=== PATIENT | female | born 1970 | race Caucasian/White ===

== ENCOUNTER → 2016-07-16 | Outpatient (CLI) | payer OTHER ==
[~2016-07-16] MED LIST: ASTN; AZEL0.055 OP; AZEL30SP NAE; LANS30CA12 PO; PRLSR20 PO; RANI300T2 PO; SYMIN160 INH; [UNRECOGNIZED DRUG - REMARK]
--- NOTE | 2016-07-16 16:15 | MAMMOGRAPHY REPORT ---
BILATERAL DIGITAL SCREENING MAMMOGRAM TOMOSYNTHESIS WITH CAD: 07/16/2016 CLINICAL HISTORY: Routine screening. Patient has no complaints. TECHNIQUE: Breast tomosynthesis in addition to standard 2D mammography was performed. Current study was also evaluated with a Computer Aided Detection (CAD) system. COMPARISON: Comparison is made to exams dated: 07/10/2015 mammogram, 07/06/2014 mammogram, 03/27/2013 m ammogram, 02/17/2012 mammogram, 08/25/2010 mammogram, and 08/20/2009 mammogram - [facility] ter. BREAST COMPOSITION: The tissue of both breasts is heterogeneously dense, which may obscure small mas ses. FINDINGS: The parenchymal pattern is unchanged. No developing mass, architectural distortion or clus ter of suspicious microcalcifications is seen in either breast. IMPRESSION: ACR BI-RADS CATEGORY 2: BENIGN There is no mammographic evidence of malignancy. A 1 year screening mammogram is recommended. The pa tient will receive written notification of the results. Approximately 10% of breast cancers are not detected with mammography. A negative mammographic report should not delay biopsy if a clinically suggestive mass is present. Rosa Isela Narayan M.D. ay/:07/16/2016 16:04:07 Crtt: Sujatha BERUMEN(Morgan)(Gabriela)(BD), [facility] letter sent: Normal 1/2 BI-RADS Code: ACR BI-RADS Category 2: Benign
== END | disposition home or self-care (01) ==
LOC: C.MAMM 13:50
PROVIDERS: ATTEND Obstetrics & Gynecology
DX: Z12.31 Encounter for screening mammogram for malignant neoplasm of breast (principal)

== ENCOUNTER → 2016-07-30 | Outpatient (CLI) | payer OTHER | END | disposition home or self-care (01) | LOC: C.PAPS 13:12 | PROVIDERS: ATTEND Internal Medicine | DX: Z12.4 Encounter for screening for malignant neoplasm of cervix (principal) ==

== ENCOUNTER → 2016-12-02 | Outpatient (CLI) | payer OTHER ==
[~2016-12-02] MED LIST changes: -ASTN; -AZEL0.055 OP; -AZEL30SP NAE; -LANS30CA12 PO; -PRLSR20 PO; -RANI300T2 PO; -SYMIN160 INH
--- NOTE | 2016-12-02 15:31 | EXERCISE STRESS ECHO ---
*NOTICE TO RECEIVING CONSTITUTION PARTY AGENCY This information is strictly Confidential and protected under [place] law. [place] law prohibits you from making any further disclosure of this information unless further disclosure is expressly permitted by the written consent of the person to whom it pertains or is authorized by law. A general authorization for the release of medical or other information is not sufficient for this purpose. Hospital accepts no responsibility if the information is made available to any other person, INCLUDING THE PATIENT. Interpretation Summary * Name: MACEY VARGAS Study Date: 12/02/2016 09:39 AM BP: 108/69 mmHg * Patient Location: [facility] HR: 71 * : 1970 (M/d/yyyy) Gender: Female Height: 61 in * Age: 46 yrs Ethnicity: [place] Weight: 151 lb * Ordering Physician: Morgan Machuca * Referring Physician: Morgan Machuca. * Performed By: Sujatha Park [facility] * * Reason For Study: DYSPNEA * BSA: 1.7 m2 * Normal hemodynamic response to exercise. * No exercise induced arrhythmias. * The ECG response to exercise is suggestive of ischemia. The echo response to exercise was normal, thus making the ECG response consistent with a false positive finding. * Low normal resting LV systolic function. * Left ventricular diastolic dysfunction. * Trace pulmonic and tricuspid regurgitation. * Mildly elevated estimated right ventricular systolic pressure. * This was a normal stress echocardiogram. * The left ventricular ejection fraction increases normally with stress. The left ventricular end-systolic cavity size reduces post-stress (normal response). The left ventricular wall motion with stress is normal. * Exercise capacity is average. Procedure Details * ECHOEX, CPT #[id number] * ECHO COLOR FLOW, CPT #[id number] * ECHO DOPPLER, CPT #[id number] Left Ventricle * The left ventricle is normal in size. * There is normal left ventricular wall thickness. * Left ventricular systolic function is low normal. * Ejection Fraction = 50-55%. * A full diastolic examination was done with clinical findings of Class I diastolic dysfunction. * The left ventricular wall motion is normal. * Resting wall motion: Normal. Stress wall motion: Appropriate increase in Left ventricular systolic function and decrease in cavity size. No stress induced segmental wall motion abnormalities. Right Ventricle * The right ventricle is normal size. Atria * The left atrial size is normal. * Right atrial size is normal. * No ASD detected; PFO is not assessed. Mitral Valve * The mitral valve is normal. * There is no mitral valve stenosis. * There is no mitral regurgitation noted. Tricuspid Valve * The tricuspid valve is normal. * There is no tricuspid stenosis. * There is trace tricuspid regurgitation. * Right ventricular systolic pressure is elevated at 30-40mmHg. Aortic Valve * The aortic valve is trileaflet. * The aortic valve opens well. * Aortic stenosis is absent. * No aortic regurgitation is present. Pulmonic Valve * The pulmonic valve is not well seen, but is grossly normal. * Pulmonic stenosis is absent. * Trace pulmonic valvular regurgitation. Great Vessels * The aortic root is normal size. * Normal diameter of the inferior vena cava. Pericardium * There is no pericardial effusion. Stress Parameters * The baseline ECG displays normal sinus rhythm. * The baseline ECG displays normal ST segments. * 0.5 - 1.6 mm horizontal to slowly upsloping ST depression in leads II, III, aVF, V4-V6 * The stress portion of this study was personally supervised by the undersigned interpreting physician. * Rest heart rate was '75' BPM. * Rest blood pressure was '108/69' * Maximum heart rate achieved was 166 bpm. * Maximum heart rate was 96 % of maximum age-predicted heart rate. * Maximum blood pressure was '153/76' * Total exercise time was '09:00' * Maximum exercise MET level achieved was '10.10' METS * Maximum treadmill speed was '3.40' miles per hour. * Maximum treadmill elevation was '14.00'% grade. * Exercise was stopped due to fatigue. MMode 2D Measurements and Calculations IVSd 1.0 cm IVSs 1.0 cm LVIDd 4.1 cm LVIDs 2.9 cm LVPWd 1.0 cm LVPWs 1.0 cm IVS/LVPW 1.0 FS 28.8 % EDV(Teich) 76.0 ml ESV(Teich) 33.6 ml EF(Teich) 55.8 % EDV(cubed) 71.0 ml ESV(cubed) 25.7 ml EF(cubed) 63.8 % % IVS thick 2.4 % % LVPW thick -0.92 % LV mass(C)d 137.9 grams LV mass(C)dI 82.2 grams/m\S\2 LV mass(C)s 83.5 grams LV mass(C)sI 49.8 grams/m\S\2 SV(Teich) 42.4 ml SI(Teich) 25.3 ml/m\S\2 SV(cubed) 45.3 ml SI(cubed) 27.0 ml/m\S\2 Ao root diam 2.6 cm Ao root area 5.2 cm\S\2 LA dimension 2.7 cm LA/Ao 1.0 LVOT diam 2.0 cm LVOT area 3.2 cm\S\2 Doppler Measurements and Calculations MV E max cathleen 57.2 cm/sec MV A max cathleen 64.7 cm/sec MV E/A 0.88 MV P1/2t max cathleen 75.1 cm/sec MV P1/2t 73.6 msec MVA(P1/2t) 3.0 cm\S\2 MV dec slope 298.9 cm/sec\S\2 MV dec time 0.24 sec Ao V2 max 102.2 cm/sec Ao max PG 4.2 mmHg Ao max PG (full) 1.6 mmHg NISSA(V,A) 2.5 cm\S\2 NISSA(V,D) 2.5 cm\S\2 LV V1 max PG 2.6 mmHg LV V1 max 80.9 cm/sec PA V2 max 73.3 cm/sec PA max PG 2.2 mmHg TR max cathleen 266.6 cm/sec
== END | disposition home or self-care (01) ==
LOC: C.CPL 09:15
PROVIDERS: ATTEND Internal Medicine Critical Care Medicine
DX: J44.9 Chronic obstructive pulmonary disease, unspecified (principal); R59.1 Generalized enlarged lymph nodes; R06.09 Other forms of dyspnea; R91.1 Solitary pulmonary nodule

== ENCOUNTER → 2016-12-07 | Outpatient (CLI) | payer OTHER ==
[~2016-12-07] MED LIST changes: +AZEL0.055 OP; +PRLSR20 PO; +RANI300T2 PO; +SYMIN160 INH
[2016-12-07 12:15] LABS: BASO % 0.3 %; BASO ABS # 0.02 K/uL (0-0.2); COMPLETE YES; EOS % 2.1 %; HEMATOCRIT 41.7 % (37-47); IG% 0.3 %; LYMPH % 17.5 %; LYMPH ABS # 1.07 K/uL (1.2-3.4); MEAN CELL VOLUME 93.5 fL (80-100); MEAN CORPUSCULAR HEMOGLOBIN 31.2 pg (25-34); MEAN CORPUSCULAR HGB CONC 33.3 g/dl (32-36); MEAN PLATELET VOLUME 9.9 fL (7.4-10.4); MONO % 6.9 %; NEUT % 72.9 %; PLATELET COUNT 295 K/uL (130-400); RED BLOOD COUNT 4.46 M/uL (4.2-5.4); WHITE BLOOD COUNT 6.11 K/uL (4.8-10.8)
[2016-12-07 12:16] LABS: PARTIAL THROMBOPLASTIN RATIO 1.1; PROTHROMBIN TIME (PATIENT) 10.3 SECONDS (9.0-12.0)
[2016-12-07 12:30] LABS: ALT/SGPT 17 U/L (12-78); AST/SGOT 13 U/L (15-37); BLOOD UREA NITROGEN 11 mg/dl (7-18); BUN/CREATININE RATIO 14.1 (10-20); CALCIUM 8.8 mg/dl (8.5-10.1); CARBON DIOXIDE 27 mmol/L (21-32); CHLORIDE 105 mmol/L (98-107); CREATININE 0.77 mg/dl (0.60-1.20); GLUCOSE 73 mg/dl (70-99); POTASSIUM 3.6 mmol/L (3.5-5.1); SODIUM 140 mmol/L (136-145)
[2016-12-07 12:34] LABS: ALKALINE PHOSPHATASE 117 U/L (45-117)
== END | disposition home or self-care (01) ==
LOC: C.LAB1850 09:55
PROVIDERS: ATTEND Internal Medicine Critical Care Medicine
DX: J44.9 Chronic obstructive pulmonary disease, unspecified (principal)

== ENCOUNTER 2016-12-09 07:13 | Day surgery (SDC) | payer OTHER ==
[~2016-12-09] VITALS: Ht 161.9 cm; Wt 68.0 kg
[2016-12-09] VITALS (14 sets, daily range): BP systolic 100–135; BP diastolic 56–79; PULSE 75–99; TEMP 36.7–37.2; O2SAT 95–100; Ht 161.9 cm; Wt 68.0 kg
[~2016-12-09 07:13] MED LIST changes: -AZEL0.055 OP; -PRLSR20 PO; -RANI300T2 PO; -SYMIN160 INH
[2016-12-09] MEDS ORDERED: MIDAZOLAM HCL 5 MG/ML 1 ML VIAL IV ONE ×2 (07:14→10:15)
[2016-12-09] MEDS ORDERED: FENTANYL CITRATE 100 MCG 2 ML CARP IV ONE (07:14)
[2016-12-09] MEDS ORDERED: LIDOCAINE HCL 2% LOCAL 50ML VIAL INFIL ONE (07:14)
--- NOTE | 2016-12-09 07:25 | History and Physical ---
History & Physical Date of Service Dec 09, 2016. History & Physical CC: Bronchoscopy to evaluate chronic cough HPI: Patient is a 46 yo female with history of MENDEZ and chronic cough. The patient has had a dry cough that has been persistent, but she denies fever, chills, hemoptysis, weight loss/ weight gain, sick contacts, travel, or chemical exposures. Her cough is typically associated with allergies and chronic rhinitis, and she was previously treated with multiple different medications along with immunotherapy without improvement of her symptoms. The patient has had an extensive workup for cough including: Laryngoscopy- WNL 11/03/16 Allergy/Immunology visit- sensitivity to dust mites, grass, ragweed, pollens, mold PFT 07/01/16 PRE POST %Change FEV1/FVC: 64 64 FEV1: 1.45/52% 1.50 3% FVC: 2.25/65% 2.35 4% FEF 25-75% 39% SVC: 2.02/58% RV: 2.14/126% T.15/84% RV/T% DLCO: 74% Interpretation: Emphysema PFT 03/31/13 PRE FEV1/FVC: 100 FEV1: 1.39/49% FVC: 1.395/39% Interpretation: Poor quality testing CT thorax 02/14/2016 personally able to review 4 mm nodule in the left apex 3 mm calculus in the right posterior costophrenic angle Multilevel degeneration/degenerative changes of the thoracic spine Calcified granuloma at the apex of the diaphragm EGD with esophageal biopsy 01/24/2015 Squamous columnar mucosa with findings consistent with reflux esophagitis CT sinuses without contrast 01/19/2014 No obstructive para-nasal sinus disease noted Allergy skin testing 03/31/2013 Positive reaction: Dust mites, grass, ragweed pollen, mold Alternaria, CT CXR 07/02/2016 No acute cardiopulmonary findings Active problems: Asthma, sinusitis, allergic rhinitis, Bronchospasm, Cough, GERD, Hypercholesterolemia, Lymphadenopathy, migraine headaches, osteopenia, peritoneal adhesions, pulmonary nodule PMHx: Uterine leiomyoma, mild cervical dysplasia Surgical Hx: Cervix cryosurgery, foot surgery, hysteroscopy with endometrial ablation, laparoscopy with fulguration of oviducts, supracervical hysterectomy laparoscopic uterus Family Hx: Unremarkable Social Hx: Social drinker, exercises regularly, single, never smoker Current Meds: Loratadine 10 mg once daily, Symbicort 80-4.5 mcg/act Inh 2 puffs BID, Proventil HFA 108 2 puffs 4 times daily PRN, Lansoprazole 30 mg daily, Astelin 137 mcg/spray Allergies: NKDA Physical Exam: Constitutional General appearance: No acute distress, well appearing and well nourished. Eyes Conjunctiva and lids: No swelling, erythema or discharge. Pupils and irises: Equal, round and reactive to light. Ears, Nose, Mouth, and Throat External inspection of ears and nose: Normal. Otoscopic examination: Abnormal. Oropharynx: Normal with no erythema, edema, exudate or lesions. Pulmonary Respiratory effort: No increased work of breathing or signs of respiratory distress. Auscultation of lungs: Clear to auscultation. Cardiovascular Auscultation of heart: Normal rate and rhythm, normal S1 and S2, without murmurs. Examination of extremities for edema and/or varicosities: Normal. Abdomen Abdomen: Non-tender, no masses. Lymphatic Digits and nails: Normal without clubbing or cyanosis. Inspection/palpation of joints, bones, and muscles: Normal. Skin Skin and subcutaneous tissue: Normal without rashes or lesions. Neurologic Cranial nerves: Cranial nerves 2-12 intact. Reflexes: 2+ and symmetric. Sensation: No sensory loss. Psychiatric Orientation to person, place, and time: Normal. Mood and affect: Normal. Assessment and Plan: Persistent cough. Plan for bronchoscopic evaluation today.
[2016-12-09] MEDS ORDERED: SYMIN160 INH (07:56)
[2016-12-09] MEDS ORDERED: PRLSR20 PO (07:56)
[2016-12-09] MEDS ORDERED: AZEL0.055 OP (07:56)
[2016-12-09] MEDS ORDERED: RANI300T2 PO (07:56)
--- NOTE | 2016-12-09 09:18 | Procedure Note ---
Pre-Mod Sedation Assessment General Date of Moderate Sedation: Dec 09, 2016. Vital Signs: Vital Signs Past 12 Hours Date Time Temp Pulse Resp B/P (MAP) Pulse Ox O2 Delivery O2 Flow Rate FiO2 12/09/16 08:52 37.2 80 18 100/56 97 Room Air 12/09/16 08:02 37.2 80 18 100/56 (71) 97 Room Air Review Cardiovascular: regular rate, rhythm, no edema, no gallop, no JVD, no murmur Abdomen: normal bowel sounds, non tender, soft, no organomegaly, no pulsatile mass Lungs: chest non-tender, lungs clear, normal breath sounds, no respiratory distress Airway Class: I Pre-Sedation Airway Assessment Oral Cavity: WNL Able to Visualize Vocal Cords: Yes Short Thick Neck: Yes Hx of Sleep Apnea: No Smoking Status: Never Smoker Mallampati Classification: Class II ASA Classification: Class I Procedure Planning Contraindications-for Mod Sed: None Yes Notes The planned sedation has been discussed with the patient and consent obtained. I have identified the patient, determined the appropriateness of sedation and have assessed the patient immediately prior to the procedure. All medicine(s) and interventions are by my order.
--- NOTE | 2016-12-09 09:18 | History & Physical Bridge Note ---
H&P Re-Evaluation Bridge Note: I have examined the patient, reviewed the History & Physical and in the interval since the performance of the History & Physical I have noted the following changes of clinical significance: No changes noted
[2016-12-09] MEDS ORDERED: NURSING VERBAL MED ORDER ONE (10:00)
--- NOTE | 2016-12-09 10:02 | Procedure Note ---
Post-Moderate Sedation Plan General Date of Moderate Sedation Dec 09, 2016. Vital Signs: Vital Signs Past 12 Hours Date Time Temp Pulse Resp B/P (MAP) Pulse Ox O2 Delivery O2 Flow Rate FiO2 12/09/16 08:52 37.2 80 18 100/56 97 Room Air 12/09/16 08:02 37.2 80 18 100/56 (71) 97 Room Air Review - Discharge Plan Post Moderate Sedation Plan: On clinical assessment, the patient appears to have tolerated the conscious sedation without complications. Patient is recovering as anticipated. Patient will continue to be monitored by nursing and may be discharged when conscious sedation discharge criteria are met.
--- NOTE | 2016-12-09 10:03 | Bronchoscopy Procedure Note ---
Bronchoscopy Procedure Note Procedure: Bronchoscopy, conscious sedation, bronchial lavage lingula Consent: Obtained through the patient placed into the chart Pre-procedural diagnosis: Chronic cough Post-procedural diagnosis: Chronic cough Start time: 937 End time: 956 Total time: minutes Analgesia: 2% liquid lidocaine: Via nebulizer 4% gel lidocaine: Via right naris 2% liquid lidocaine: Via bronchoscopy Sedation: Versed IV: 4mg Fentanyl IV: 75 g Procedure: The Olympus video bronchoscope was used for this procedure and passed down through the right naris Right naris/posterior naris/posterior oropharynx: Anatomically within normal limits Glottis: Anatomically within normal limits Vocal cords: Proper abduction and abduction, anatomically within normal limits Subglottis/trachea/Josefina: Anatomically within normal limits Right bronchial tree: Right mainstem bronchus: Anatomically within normal limits Right upper lobe: Anatomically within normal limits Bronchus intermedius: Anatomically within normal limits Right middle lobe: Anatomically within normal limits Right lower lobe: Anatomically within normal limits Findings: No significant findings noted Left bronchial tree: Left mainstem bronchus: Anatomically within normal limits Left upper lobe: Anatomically within normal limits Lingula: Anatomically within normal limits Left lower lobe: Anatomically within normal limits Findings: No significant findings noted Bronchial alveolar lavage: Lingula EBL: None Complications: None Follow-up: In the [facility]
--- NOTE | 2016-12-09 10:05 | Discharge Instructions ---
Discharge Instructions Date of Service Dec 09, 2016. Admission Reason for Admission: Asthma, Cough , Pulmonary Nodule Discharge Discharge Diagnosis / Problem: chronic cough Discharge Goals Goal(s): Diagnostic testing Activity Recommendations Activity Limitations: resume your previous activity . Instructions / Follow-Up Instructions / Follow-Up Follow-up in the [facility] pulmonary clinic Current Hospital Diet Patient's current hospital diet: Discharge Diet Recommended Diet: Regular Diet Procedures Procedures Performed: Bronchoscopy with conscious sedation and bronchial lavage of the lingula Pending Studies Studies pending at discharge: no Medical Emergencies . Who to Call and When: Medical Emergencies: If at any time you feel your situation is an emergency, please call 911 immediately. . Non-Emergent Contact Non-Emergency issues call your: Emergency Department Director . . "Provider Documentation" section prepared by Morgan Machuca. . VTE Core Measure Inpt VTE Proph given/why not?: Treatment not indicated
[2016-12-09] MEDS ORDERED: FENTANYL CITRATE INJ 50 MCG/1 ML 2 ML VIAL IV ONE (10:15)
== END 2016-12-09 12:20 | disposition home or self-care (01) ==
LOC: C.ACU 07:13
PROVIDERS: ATTEND Internal Medicine Critical Care Medicine
DX: R05 Cough (principal); J45.909 Unspecified asthma, uncomplicated; K21.9 Gastro-esophageal reflux disease without esophagitis; E78.00 Pure hypercholesterolemia, unspecified; M85.80 Other specified disorders of bone density and structure, unspecified site; Z79.899 Other long term (current) drug therapy

== ENCOUNTER → 2017-01-27 | Day surgery (SDC) | payer OTHER ==
[2017-01-21 11:32] VITALS: BMI 24.0
[~2017-01-27] VITALS: Ht 160 cm; Wt 63.2 kg
[~2017-01-27] MED LIST changes: +ASTN; +LANS30CA12 PO; +LIDOCAINE HCL 2% 2 ML VIAL (20MG/ML) ONE; +PROPOFOL IV EMULSION 10 MG/ML 20 ML VIAL IV ONE; +RANI300T2 PO; +SODIUM CHLORIDE 0.9% 500ML 500 ML IV ONE; +SYMIN160 INH; -[UNRECOGNIZED DRUG - REMARK]
[2017-01-27 12:41] VITALS: Ht 160 cm; Wt 63.2 kg
--- NOTE | 2017-01-27 13:08 | Endo History and Physical ---
History & Physical Date of Service: Jan 27, 2017. Chief Complaint: REFLUX COUGH Referring Physician: DR PINA History of Present Illness cough/GERD despite meds Past Surgical History Hx Cardiac Surgery: No Hx Internal Defibrillator: No Hx Pacemaker: No Hx Abdominal Surgery: Yes (LAPRASCOPIC HYSTERECTOMY WITH SALPINECTOMY) Hx of Implantable Prosthesis: No Hx Post-Op Nausea and Vomiting: Yes (PONV) Hx Cancer Surgery: No Hx Thoracic Surgery: No Hx Orthopedic: No Hx Urinary Tract Surgery: No Family History None Social History Smoking Status: Never Smoker Hx Substance Use: No Hx Alcohol Use: Yes (OCCASIONAL) Allergies Coded Allergies: No Known Allergies (Unverified , 01/27/17) Current Medications Reported Home Medications Medications Dose Route/Sig Max Daily Dose Days Date Category Astelin Nasal Reklaw (Azelastine Hcl) 200 Sprays/30 Ml Reklaw 1 Sprays NA BID 01/21/17 Reported Prevacid (Lansoprazole) 30 Mg Capcr 30 Mg PO BID 01/21/17 Reported Symbicort 160/4.5 Inhaler (Budesonide/Formoterol Fumarate) Aero 2 Puffs INH BID 12/09/16 Reported Zantac (Ranitidine HCl) 300 Mg Tab 300 Mg PO HS 12/09/16 Reported Vital Signs Weight (Kilograms): 63.18 Height (Feet): 5 Height (Inches): 3 Date Time Temp Pulse Resp B/P (MAP) Pulse Ox O2 Delivery O2 Flow Rate FiO2 01/27/17 12:48 37 97 16 110/59 (76) 98 Room Air Physical Exam General Appearance: WD/WN, no apparent distress Assessment and Plan EGD with Saha today
--- NOTE | 2017-01-27 13:35 | Discharge Instructions ---
Endoscopy Patient Instructions Date / Procedure(s) Performed Jan 27, 2017. EGD Allergy Information Coded Allergies: No Known Allergies (Unverified , 01/27/17) Discharge Date / Findings Jan 27, 2017. normal EGD - WRIGHT placed Medication Instructions Restart Stopped Medication(s): OK to resume home medications. Contact 's office regarding whether or not to continue with acid reflux medications. Provider Instructions Activity Restrictions - No exercising or heavy lifting for 24 hours. - Do not drink alcohol the day of the procedure. - Do not drive a car or operate machinery until the day after the procedure. - Do not make any important decisions or sign important papers in 24 hours after the procedure. Following Day: - Return to full activity which may include returning to work/school. Diet Start your diet with liquids and light foods (jello, soup, juice, toast). Then eat your usual diet if not nauseated. Treatment For Common After Affects For mild abdominal pain, bloating, or excessive gas: - Rest - Eat lightly - Lie on right side Follow-Up Information Follow-up with DR PINA as scheduled Anesthesia Information What You Should Know You have had a procedure that required some medicine to reduce anxiety and discomfort. This treatment is called moderate sedation. After receiving the treatment, you may be sleepy, but you will be able to breathe on your own. The effects of the treatment may last for several hours. Follow these instructions along with Activity/Diet recommendations noted above: * Do NOT do anything where dizziness or clumsiness would be dangerous. * Rest quietly at home today, then you can be up and about tomorrow. * Have a responsible person stay with you the rest of today. * You may have had an I.V. today. If so, you may take the dressing off later today. Recommendations Call your doctor if: * Trouble breathing * Continuous vomiting for more than 24 hours * Temperature above 101 degrees * Severe abdominal pain or bloating * Pain not relieved by pain medicine ordered * There is increased drainage or redness from any incision * A large amount of rectal bleeding greater than 2-3 tablespoons. (If you had a polyp/s removed or have hemorrhoids, a small amount of blood - from the rectum is to be expected.) * You have any unanswered questions or concerns. IN THE EVENT OF A SERIOUS EMERGENCY, GO TO THE NEAREST EMERGENCY ROOM Your discharge instructions were prepared by provider Raquel Galicia. Patient Instructions Signature Page Agatha Escamilla Patient (or Guardian) Signature/Date: I have read and understand the instructions given to me by my caregivers. Caregiver/RN/Doctor Signature/Date: The above-named patient and/or guardian has received patient instructions on this date. + Original Patient Signature Page (only) stays with chart. Please make copy for patient.
--- NOTE | 2017-01-27 13:38 | GI REPORT ---
Procedure Date: 01/27/2017 1:05 PM Procedure: Upper GI endoscopy Indications: Chronic cough Medicines: Propofol per Anesthesia Complications: No immediate complications. Estimated blood loss: Minimal. Estimated Blood Loss: Estimated blood loss: none. Procedure: Pre-Anesthesia Assessment: - Prior to the procedure, a History and Physical was performed, and patient medications, allergies and sensitivities were reviewed. The patient's tolerance of previous anesthesia was reviewed. - The risks and benefits of the procedure and the sedation options and risks were discussed with the patient. All questions were answered and informed consent was obtained. - Patient identification and proposed procedure were verified prior to the procedure by the physician and the nurse. The procedure was verified in the pre-procedure area in the procedure room. - Mental Status Examination: alert and oriented. Airway Examination: normal oropharyngeal airway and neck mobility. Respiratory Examination: clear to auscultation. CV Examination: normal. Abdominal Examination: bowel sounds present, abdomen soft and non-tender, no masses or organomegaly noted. - ASA Grade Assessment: III - A patient with severe systemic disease. After obtaining informed consent, the endoscope was passed under direct vision. Throughout the procedure, the patient's blood pressure, pulse, and oxygen saturations were monitored continuously. The Scope was introduced through the mouth, and advanced to the second part of duodenum. The upper GI endoscopy was accomplished without difficulty. The patient tolerated the procedure well. Findings: The examined esophagus was normal. The WRIGHT capsule with delivery system was introduced through the mouth and advanced into the esophagus, such that the WRIGHT pH capsule was positioned 30 cm from the incisors, which was 6 cm proximal to the EG junction. Suction was applied to the well of the WRIGHT pH capsule to suck in the adjacent mucosa of the esophagus using the external vacuum pump set at a minimum vacuum pressure of 550 mmHg for 60 seconds. The WRIGHT pH capsule was then deployed by depressing the plunger on top of the handle to advance the locking pin into the mucosa, thereby attaching the capsule to the esophagus. The plunger was then rotated a quarter turn clockwise to release the capsule from the delivery system. The delivery system was then withdrawn. Endoscopy was utilized for probe placement and diagnostic evaluation. The stomach was normal. The examined duodenum was normal. Impression: - Normal esophagus. - Normal stomach. - Normal examined duodenum. - The WRIGHT pH capsule was positioned 30 cm from the naris, which was 6 cm proximal to the EG junction. - No specimens collected. Recommendation: - Continue present medications. - Follow the WRIGHT instructions. - Return to referring physician as previously scheduled. - Discharge patient to home. Raquel Galicia D.O. Raquel Galicia, 01/27/2017 1:38:36 PM This report has been signed electronically. Note Initiated On: 01/27/2017 1:05 PM I attest to the content of the Intraoperative Record and orders documented therein, exceptions below
--- NOTE | 2017-01-27 13:44 | Anesthesiology Progress Note ---
Anesthesia Post Op Note Date & Time Jan 27, 2017 at 13:44 Vital Signs Pain Intensity: 0 Vital Signs Past 12 Hours Date Time Temp Pulse Resp B/P (MAP) Pulse Ox O2 Delivery O2 Flow Rate FiO2 01/27/17 13:36 80 16 110/65 (80) 98 Room Air 01/27/17 12:48 37 97 16 110/59 (76) 98 Room Air Notes Mental Status: alert / awake / arousable, participated in evaluation Pt Amnestic to Procedure: Yes Nausea / Vomiting: adequately controlled Pain: adequately controlled Airway Patency, RR, SpO2: stable & adequate BP & HR: stable & adequate Hydration State: stable & adequate Anesthetic Complications: no major complications apparent
[2017-01-27 14:05] VITALS: BP 113/60; PULSE 81; O2SAT 99
== END | disposition home or self-care (01) ==
LOC: C.GI 12:23
PROVIDERS: ATTEND Internal Medicine
DX: R05 Cough (principal); J45.909 Unspecified asthma, uncomplicated; Z90.710 Acquired absence of both cervix and uterus